=== PATIENT | male | born 1985 | race Caucasian/White ===

== ENCOUNTER 2020-10-22 18:23 | Emergency (ER) | payer SELFPAY ==
--- NOTE | 2020-10-22 18:54 | EDM.PDOC ---
ED HPI GENERAL MEDICAL PROBLEM - General Chief Complaint: ENT Problem Stated Complaint: TOOTH PAIN Time Seen by Provider: 10/22/20 18:30 Source of Information: Reports: Patient, RN Notes Reviewed History Limitations: Reports: No Limitations - History of Present Illness INITIAL COMMENTS - FREE TEXT/NARRATIVE: Patient is a 35-year-old male who presents to the ED for evaluation of his lower dental pain. Patient notes that this is day 3 with lower right molar pain. The patient states that he does not note any cavity or chipped tooth or trauma to the area. He took 1 tablet of oxycodone on day 1, as his sister had a leftover prescription and she gave it to him. He has been using Tylenol ibuprofen, and using alcohol to numb the pain over the last couple days. He states that he has not been sleeping well due to the pain. He has been using cold water to also help numb the tooth, but it does not seem to be helping anymore. Patient's not had any fevers or chills, cough or shortness of breath, nausea/vomiting/diarrhea. He is not complaining of any throat pain, or pain with chewing. He does have a history of TMJ. Right Lower Tooth/Teeth Pain Score (Numeric/FACES): 9 - Related Data Allergies Allergy/AdvReac Type Severity Reaction Status Date / Time amoxicillin Allergy Severe Hives Verified 10/22/20 18:34 mint Allergy Severe Airway Verified 10/22/20 18:35 Tightness Home Meds: Home Meds . [No Known Home Meds] 10/22/20 [History] Past Medical History Cardiovascular History: Reports: Hypertension Other Cardiovascular History: had been on b/p med about 1 yr ago-lisinpril - Past Surgical History GI Surgical History: Reports: Hernia, Inguinal Social & Family History - Tobacco Use Tobacco Use Status *Q: Current Every Day Tobacco User Years of Tobacco use: 22 Packs/Tins Daily: 0.5 - Caffeine Use Caffeine Use: Reports: Energy Drinks, Soda, Tea - Recreational Drug Use Recreational Drug Use: No ED ROS ENT - Review of Systems Review Of Systems: Comprehensive ROS is negative, except as noted in HPI. ED EXAM, ENT - Physical Exam Exam: See Below Exam Limited By: No Limitations General Appearance: Alert, WD/WN, No Apparent Distress Eye Exam: Bilateral Eye: EOMI, Normal Inspection, PERRL Mouth/Throat: Normal Inspection, Normal Gums, Normal Lips, Normal Oropharynx, Dental Pain (R lower molar, no obvious cavity or other abnormality.) Respiratory/Chest: No Respiratory Distress, Lungs Clear, Normal Breath Sounds, No Accessory Muscle Use, Chest Non-Tender Cardiovascular: Normal Peripheral Pulses, Regular Rate, Rhythm, No Murmur Extremities: Normal Inspection, Normal Capillary Refill Neurological: Alert, Oriented, Normal Cognition, No Motor/Sensory Deficits Psychiatric: Normal Affect, Normal Mood Skin: Warm, Dry, Intact, Normal Color, No Rash Course - Vital Signs Last Recorded V/S: Last Vital Signs Temp 98.9 F 10/22/20 18:30 Pulse 77 10/22/20 18:30 Resp 20 10/22/20 18:30 BP 164/94 H 10/22/20 18:30 Pulse Ox 100 10/22/20 18:30 - Re-Assessments/Exams Free Text/Narrative Re-Assessment/Exam: 10/22/20 18:55 Patient presents to the ED for evaluation of his tooth pain. He will be started on a course of clindamycin as he has an amoxicillin allergy. And a few tablets of Aurora, dispensed through [facility] due to it being and all pharmacies being closed. Departure - Departure Time of Disposition: 18:56 Disposition: Home, Self-Care 01 Condition: Good Clinical Impression: Pain, dental - Discharge Information *PRESCRIPTION DRUG MONITORING PROGRAM REVIEWED*: No *COPY OF PRESCRIPTION DRUG MONITORING REPORT IN PATIENT [place]: No Instructions: Preventive Dental Care, Adult Referrals: PCP,None [Primary Care Provider] - Additional Instructions: You have been evaluated in the ED for your dental pain. You have been provided with a script for Clindamycin. Please take this medication as directed. (2 tabs on day 1, then 1 tab QID for 7 days or until gone). Please note this antibiotic can take up to 48 hours to provide coverage. If you do not notice an improvement in the swelling within 3 days time I recommend you seek care for reevaluation for change in antibiotics. Please notes that since this medication was prescribed through the instrument machine, you will will have a few extra tablets of antibiotic left over, you only need to take a week's worth of medication. This should be a 30 tablet count. Aleve provides good pain relief for dental pain. Please take 1-2 tabs twice daily as needed for pain. You were given a prescription for a strong pain medication, hydrocodone/a cetaminophen 5/325 mg, please take 1 tab every 6 hours as needed for pain not relieved by Tylenol or ibuprofen/Aleve alone. Please note this medication does contain Tylenol in it, so do not take more than 4000 mg in a 24-hour time span. These medications can be addictive, so please take as few as possible to achieve adequate pain control. These meds can also be quite constipating, recommend rafaela t you increase your oral fluid intake and take a stool softener like MiraLAX while taking these medications. Do not drive while taking this medication. You may use hot pack/ ice packs to the affected area as tolerated in 15-20 minute intervals. You will ultimately need to find a dentist to provide definitive management of your dental pain. The [facility] in [place], [place], , is a clinic that has been known to take people that do not have dental insurance, and may provide payment plans. You might want to check with this provider, regarding your dental pain. Please return to the ED if your symptoms change or worsen. Sepsis Event Note (ED) - Evaluation Sepsis Screening Result: No Definite Risk - Focused Exam Vital Signs: Vital Signs Temp Pulse Resp BP Pulse Ox 10/22/20 18:30 98.9 F 77 20 164/94 H 100
== END 2020-10-22 19:05 | disposition home or self-care (01) ==
LOC: JD.ED 18:23
DX: K08.89 Other specified disorders of teeth and supporting structures (principal); I10 Essential (primary) hypertension; F17.210 Nicotine dependence, cigarettes, uncomplicated; Z88.1 Allergy status to other antibiotic agents; Z91.018 Allergy to other foods
CPT/HCPCS: 99282